=== PATIENT | female | born 1945 | race Caucasian/White ===

== ENCOUNTER 2017-01-23 19:01 | Observation (INO) ==
[2017-01-23] MEDS ORDERED: ASPIRIN PO STA (19:06)
[2017-01-23 19:22] LABS: MANUAL DIFF NEEDED? NO
[2017-01-23 19:37] LABS: BASO% 0.5 % (0.0-0.8); EOS# 0.06 X1000 (0.0-0.7); HEMATOCRIT 30.2 % (37.0-47.0); HEMOGLOBIN 10.6 g/dL (12.0-16.0); IMM GRAN# 0.06 X1000 (0.0-0.04); LYMPH# 1.45 X1000 (1.2-3.4); LYMPH% 23.4 % (20.5-51.1); MCH 30.5 PG (27-31); MCHC 35.1 g/dL (33-37); MONO# 0.54 X1000 (0.11-0.59); MONO% 8.7 % (1.7-9.3); MPV 9.8 FL (7.4-10.4); NEUT% 65.4 % (42.2-75.2); PLT 301 X1000 (130-400); RBC 3.47 XMIL (4.2-5.4)
--- NOTE | 2017-01-23 19:44 | Diag Imaging Result Doc PS360 ---
CHEST-2 VIEWS - 01/23/2017 INDICATION: CP TECHNIQUE: COMPARISON: 09/29/2014 FINDINGS: The lungs are normally expanded and clear. Heart size and mediastinal contours are normal. No pneumothorax or pleural effusion. IMPRESSION: Negative exam. Electronically signed by Porter Sanchez 01/23/2017 7:42 PM
[2017-01-23 19:46] LABS: INR 0.97; PROTIME 10.2 Seconds (9.2-11.7); PTT 25.2 Seconds (22.0-36.0)
[2017-01-23] MEDS ORDERED: ZOFRAN IV ONE (19:54)
[2017-01-23] MEDS ORDERED: MORPHINE IV ONE (19:54)
[2017-01-23] MEDS ORDERED: ATIVAN IV ONE ×2 (20:05→21:37)
[2017-01-23 20:12] LABS: ALBUMIN 4.7 g/dL (3.5-5.0); CALCIUM 9.4 mg/dL (8.8-10.2); POTASSIUM 4.4 mmol/L (3.5-5.1); TOTAL BILIRUBIN 0.42 mg/dL (0.20-1.00); TOTAL PROTEIN 7.2 g/dL (6.3-8.3)
--- NOTE | 2017-01-23 21:01 | PROVIDER DOCUMENTATION ---
This chart was entered by Marcial Gordon Scribe, acting as scribe for Reed Mata MD. HPI-Chest Pain - General Chief Complaint: Chest Pain Stated Complaint: CP Time Seen by Provider: 01/23/17 19:06 Source: patient, EMS Allergies/Adverse Reactions: Patient Allergies Allergy/AdvReac Type Severity Reaction Status Date / Time Iodinated Contrast Media - Allergy Unknown Verified 09/29/14 02:28 Oral and [Iodinated Contrast Media - IV Dye] JIMMY Inhibitors AdvReac SWELLING Verified 09/29/14 02:28 Home Medications: Home Medication List Medication Instructions Recorded Confirmed Last Taken Type Clonidine HCl 1 tab PO TID 01/08/14 09/29/14 09/28/14 17:00 History Diltiazem HCl [Cardizem Cd] 1 tab PO DAILY 01/08/14 09/29/14 09/28/14 08:00 History Diphenoxylate/Atropine [Lomotil] 1 tab PO PRN PRN 01/08/14 09/29/14 05/01/14 12: 30 History 1 tab Esomeprazole [Nexium] 1 tab PO DAILY 01/08/14 09/29/14 09/28/14 08:00 History Fluticasone 50 Mcg Nasal [place] 2 spray INH DAILY 01/08/14 09/29/14 05/01/14 12: 30 History [Flonase] 2 SPRAY Gemfibrozil 1 tab PO DAILY 01/08/14 09/29/14 09/28/14 08:00 History Hydralazine [Apresoline] 100 mg PO TID 01/08/14 09/29/14 09/28/14 17:00 History Levothyroxine [Synthroid] 1 tab PO DAILY 01/08/14 09/29/14 09/28/14 08:00 History Metformin [Glucophage] 1,000 mg PO BID 01/08/14 09/29/14 09/28/14 17:00 History Montelukast [Singulair] 1 tab PO DAILY 01/08/14 09/29/14 09/28/14 08:00 History Sertraline HCl [Zoloft] 1 tab PO DAILY 01/08/14 09/29/14 09/28/14 00:00 History Alprazolam [Xanax] 1 - 2 each PO PRN PRN 09/29/14 09/29/14 Unknown History Olmesartan/Hydrochlorothiazide 1 each PO DAILY 09/29/14 09/29/14 09/28/14 08:00 History [Benicar Hct 40-25 mg Tablet] Ondansetron [Zofran] 8 mg PO Q6H PRN PRN 09/29/14 09/29/14 09/28/14 00:00 History Sucralfate [Carafate] 1 gm PO Q6H #0 tablet 10/03/14 Unknown Rx - History of Present Illness-CP Nature of Presenting Problem: Pt is a 71 yowf who presents to ER via EMS with CC of CP and palpitations since this am. Pt reports chest pain that radiates to left mandibular and LUE. Pt reports that she took 4x81mg aspirin before EMS arrived, and was given 2xNitro and 4xMorphine by EMS. Pt also complains of nausea, fatigue, shortness of breath and dyspnea on deep inspiration. Pt reports that she was recently seen by Dr. Sherwood for an abnormal EKG, had anEcho on Tuesday, and states that she is scheduled to have a holtier monitor placed. Location: reports: central Chest Pain Radiation: reports: jaw (left mandibular), arms (LUE (shoulder)) Severity in ED: mild, moderate Onset/Duration: this morning Timing: still present, improving Associated Symptoms: reports: fatigue, nausea, shortness of breath, weakness. denies: abdominal pain, back pain, diaphoresis, dizziness, edema, fever/chills, headache, heartburn, rash, swelling/lump in chest, syncope, vomiting Nitro Today/Relief: 0.4 mg x 2, provided by EMS, mild relief Aspirin Treatment Today: 81 mg x 4, provided at home Prior Chest Pain/Cardiac Workup: reports: echocardiography Similar Symptoms Previously?: Yes Recently Seen Here or By Another Healthcare Provider: Yes Review of Systems - Adult - REVIEW OF SYSTEMS - ADULT Constitutional: reports: christa. denies: chills, fever, night sweats, weight gain, weight loss Eyes: reports: no symptoms reported Ears, Nose, Mouth & Throat: reports: mouth/dental pain (left mandibular pain). denies: ear discharge, ear pain, epistaxis, sinus problem, mouth swelling, throat pain, throat swelling Cardiovascular: reports: chest pain, palpitations. denies: edema, heart murmur , irregular heart rate, orthopnea, poor circulation, PND, syncope Respiratory: reports: dyspnea on exertion, shortness of breath. denies: chronic cough, cough, excessive sputum production, hemoptysis, pleurisy, wheezing Gastrointestinal: reports: nausea. denies: abdominal pain, hematemesis, constipation, diarrhea, difficulty swallowing, frequent heartburn, poor appetite , rectal bleeding, vomiting Genitourinary: reports: no symptoms reported Musculoskeletal: reports: joint pain (left shoulder). denies: bone pain, back pain, frequent leg cramps, joint swelling, muscle aches, muscle weakness, neck pain Integumentary: reports: no symptoms reported Neurological: reports: no symptoms reported Psychiatric: reports: no symptoms reported Endocrine: reports: no symptoms reported Hematologic/Lymphatic: reports: no symptoms reported Allergic/Immunologic: reports: no symptoms reported All Other Systems: Reviewed and Negative Past History - Adult - PAST MEDICAL HISTORY-ADULT Review of Records: reports: Nursing Assessment Review, Medications Reviewed Cardiovascular: reports: HTN, hyperlipidemia, murmur Gastrointestinal: reports: IBS, other (diverticulitis) Genitourinary: reports: kidney disease Psychiatric: reports: anxiety, depression Endocrine/Immune: reports: anemia, Diabetes, thyroid disorder Other Conditions: reports: other cancer (skin cancer) Additional History: anemia, skin cancer - PRIOR SURGERIES/PROCEDURES Surgical/Procedure History: reports: cholecystectomy, hysterectomy, other ( bladder, cyst removal, eye Sx) - IMMUNIZATION STATUS Childhood Immunizations: See Nurse Assessment Flu Vaccine: See Nurse Assessment Physical Exam-General - PHYSICAL EXAM-ADULT Initial Vital Signs Reviewed: Yes - CONSTITUTIONAL General Appearance: appears well, alert, mild distress - EYES Eyes: PERRL/EOMI, pink conjunctivae - NECK Neck: non-tender, full range of motion, supple. negative: C-spine tenderness, limited range of motion, lymphadenopathy - RESPIRATORY Respiratory: chest non-tender, lungs clear, normal breath sounds, no pleuratic chest pain, no respiratory distress, no accessory muscle use. negative: respiratory distress, decreased breath sounds, accessory muscle use, wheezing - CARDIOVASCULAR Cardiovascular: normal peripheral pulses, regular rate, rhythm, systolic murmur (Grade 1). negative: bradycardia, tachycardia, irregularly irregular - GASTROINTESTINAL (ABDOMEN) Abdominal Exam: normal bowel sounds, non tender, soft, no organomegaly, no pulsatile mass. negative: guarding, rebound, tenderness - MUSCULOSKELETAL Back Exam: no CVA tenderness, no vertebral tenderness. negative: CVA tenderness , vertebral tenderness - PSYCHIATRIC Psych/Mental Status: normal mood/affect, normal thought content, normal thought process, oriented x 3 Progress - PLAN OF CARE/RESULTS Progress/Plan/Lab Results: Vital Signs - 8 hr 01/23/17 19:15 Pulse Rate 74 Respiratory Rate 22 Blood Pressure 159/79 O2 Sat by Pulse Oximetry 100 Laboratory Results - last 24 hr 01/23/17 01/23/17 01/23/17 19:00 19:00 19:00 WBC 6.20 RBC 3.47 L Hgb 10.6 L Hct 30.2 L MCV 87.0 MCH 30.5 MCHC 35.1 RDW Std Deviation 13.2 Plt Count 301 MPV 9.8 Immature Gran % (Auto) 1.0 H Neut % (Auto) 65.4 Lymph % (Auto) 23.4 Island % (Auto) 8.7 Eos % (Auto) 1.0 Baso % (Auto) 0.5 Immature Gran # (Auto) 0.06 H Neut # (Auto) 4.06 Lymph # (Auto) 1.45 Island # (Auto) 0.54 Eos # (Auto) 0.06 Baso # (Auto) 0.03 PT INR PTT (Actin FS) D-Dimer 0.38 Sodium 136 Potassium 4.4 Chloride 95 L Carbon Dioxide 19 L Anion Gap 22 BUN 26 H Creatinine 2.2 H Estimated GFR/1.73 m2 22 BUN/Creatinine Ratio 12 Glucose 173 H Calculated Osmolality 281 Calcium 9.4 Magnesium Total Bilirubin 0.42 AST 20 ALT 10 Alkaline Phosphatase 150 H Creatine Kinase 90 Troponin T Obr-N-Fqtdxglvspb Pept Total Protein 7.2 Albumin 4.7 Globulin 2.5 Albumin/Globulin Ratio 1.9 01/23/17 01/23/17 01/23/17 19:00 19:00 19:00 WBC RBC Hgb Hct MCV MCH MCHC RDW Std Deviation Plt Count MPV Immature Gran % (Auto) Neut % (Auto) Lymph % (Auto) Island % (Auto) Eos % (Auto) Baso % (Auto) Immature Gran # (Auto) Neut # (Auto) Lymph # (Auto) Island # (Auto) Eos # (Auto) Baso # (Auto) PT 10.2 INR 0.97 PTT (Actin FS) 25.2 D-Dimer Sodium Potassium Chloride Carbon Dioxide Anion Gap BUN Creatinine Estimated GFR/1.73 m2 BUN/Creatinine Ratio Glucose Calculated Osmolality Calcium Magnesium Total Bilirubin AST ALT Alkaline Phosphatase Creatine Kinase Troponin T < 0.010 Jhu-T-Xqvqmtzzidd Pept 611 H Total Protein Albumin Globulin Albumin/Globulin Ratio 01/23/17 19:00 WBC RBC Hgb Hct MCV MCH MCHC RDW Std Deviation Plt Count MPV Immature Gran % (Auto) Neut % (Auto) Lymph % (Auto) Island % (Auto) Eos % (Auto) Baso % (Auto) Immature Gran # (Auto) Neut # (Auto) Lymph # (Auto) Island # (Auto) Eos # (Auto) Baso # (Auto) PT INR PTT (Actin FS) D-Dimer Sodium Potassium Chloride Carbon Dioxide Anion Gap BUN Creatinine Estimated GFR/1.73 m2 BUN/Creatinine Ratio Glucose Calculated Osmolality Calcium Magnesium 1.9 Total Bilirubin AST ALT Alkaline Phosphatase Creatine Kinase Troponin T Rjq-A-Bdrzwtvzshv Pept Total Protein Albumin Globulin Albumin/Globulin Ratio Orders Category Date Time Status Cardiac Monitoring DIRECTED Care 01/23/17 19:06 Active Saline Loc NOW Care 01/23/17 19:06 Active CHEST-2 VIEWS [RAD] Stat Exams 01/23/17 19:06 Completed CBC WITH ELECTRONIC DIFF [HEME] Stat Lab 01/23/17 19:00 Completed CK PROFILE [SP CHEM] Stat Lab 01/23/17 19:00 Completed COMPREHENSIVE METABOLIC PANEL [CHEM] Stat Lab 01/23/17 19:00 Completed D-DIMER [CHEM] Stat Lab 01/23/17 19:00 Completed MAGNESIUM [CHEM] Stat Lab 01/23/17 19:00 Completed PRO B-NATRIURETIC PEPTIDE Stat Lab 01/23/17 19:00 Completed PROTIME WITH INR [COAG] Stat Lab 01/23/17 19:00 Completed PTT [COAG] Stat Lab 01/23/17 19:00 Completed TROPONIN T Stat Lab 01/23/17 19:00 Completed Aspirin Med 01/23/17 19:06 Discontinued 325 mg PO STAT STA Lorazepam [Ativan] Med 01/23/17 20:05 Discontinued 0.5 mg IV NOW ONE Morphine Med 01/23/17 19:54 Discontinued 4 mg IV NOW ONE Ondansetron [Zofran] Med 01/23/17 19:54 Discontinued 4 mg IV NOW ONE EKG [EKG] Stat Ther 01/23/17 19:06 Ordered Result Diagrams: 01/23/17 19:00 01/23/17 19:00 - REASSESSMENT Reassessment #1 Time Reassessed: 20:59 (pt has been painfree during her entire ED stay and is adamant about not staying over night for further testing so will arrange out pt follow up) Status: improving Departure - Departure Date of Disposition Decision: 01/23/17 Time of Disposition Decision: 21:00 DIAGNOSIS: Chest pain Qualifiers: Chest pain type: unspecified Qualified Code(s): R07.9 - Chest pain, unspecified Disposition: HOME 01 Certified Medical Emergency: Emergent Condition: Good Additional Freetext Instructions: call Dr Michael Rebollar, [facility] ED Follow Up Instructions: You have been treated by a care provider in the Emergency Department. These instructions are being provided to you so you can have an understanding of how to care for yourself upon discharge. Upon discharge from the Emergency Department, you are responsible for making arrangements for follow-up care by a physician of your choice. Take all prescribed medications as directed. Return to the Emergency Department immediately for any new or worsening symptoms. You may call the Physician Referral phone number at [phone] to obtain a list of Physicians who are taking new patients.tor, to arrange further testing Referrals and Follow-Ups: Michael Rebollar MD [ACTIVE STAFF PHYSICIAN] - - Critical Care Note This patient required my direct & personal management of CC.: No This chart was documented by the indicated scribe, (Marcial Gordon Scribe) and accurately reflects the services I performed and decisions made by me, Reed Herrera MD, as attested by the provider's signature.
--- NOTE | 2017-01-23 21:02 | ED EKG INTERP ---
This chart was entered by Marcial Gordon Scribe, acting as scribe for Reed Mata MD. EKG Interpretation - EKG Time of EKG reading by physician:: 19:27 EKG Read and Signed by:: Reed Mata EKG Interpretation (*Must complete 3 of following elements*): Abnormal ( Nonspecific ST abnormality) Rate: 67 Rhythm: Sinus rhythm with 1st degree AV block This chart was documented by the indicated scribe, (Marcial Gordon Scribe) and accurately reflects the services I performed and decisions made by me, Reed Herrera MD, as attested by the provider's signature.
--- NOTE | 2017-01-23 22:27 | ED EKG INTERP ---
This chart was entered by Marcial Gordon Scribe, acting as scribe for Reed Mata MD. EKG Interpretation - EKG Time of EKG reading by physician:: 22:02 EKG Read and Signed by:: Reed Mata EKG Interpretation (*Must complete 3 of following elements*): Normal Rate: 80 Rhythm: Sinus rhythm with 1st degree AV block This chart was documented by the indicated scribe, (Marcial Gordon Scribe) and accurately reflects the services I performed and decisions made by me, Reed Herrera MD, as attested by the provider's signature.
[2017-01-24] MEDS ORDERED: TYLENOL PO PRN (00:23)
[2017-01-24] MEDS ORDERED: NS 1,000 ML IV ONE (00:23)
[2017-01-24] MEDS ORDERED: MORPHINE IV PRN (00:23)
[2017-01-24] MEDS ORDERED: XANAX PO PRN (00:30)
[2017-01-24] MEDS ORDERED: LOMOTIL PO PRN (00:30)
[2017-01-24] MEDS ORDERED: APRESOLINE IV PRN (02:53)
--- NOTE | 2017-01-24 03:38 | HISTORY AND PHYSICAL ---
CHIEF COMPLAINT: Chest pain. HISTORY OF PRESENT ILLNESS: This is a 71-year-old female with a history of hypertension and diabetes who presents with chest pain, midsternal, back, and radiating to her left ear, left shoulder, neck, and left arm. Pain was graded as of 8/10. She is followed by Dr. Hernández. Her last stress test was in 2013. Apparently, she had a significant reaction at that time. She had nausea and fatigue. Apparently, she has been followed by Dr. Hernández intermittently and it is actually due for an echocardiogram this week. Pain is different than her usual level of pain. It started while she was at [employer]. She did have nausea, weakness, shortness of breath. No diaphoresis. The pain has improved with some nitroglycerin. Patient placed in observation for chest pain. PAST MEDICAL HISTORY: 1. Skin cancer. 2. Diabetes. 3. Hypertension. 4. Chronic renal failure stage III. 5. Anxiety, depression. 6. GERD. 7. Diverticulosis. 8. Hypothyroidism. PAST SURGICAL HISTORY: 1. Cholecystectomy. 2. Hysterectomy. 3. Bladder sling surgery. 4. Cataract surgery. 5. Cyst removal. 6. Skin cancer. SOCIAL HISTORY: No smoking. No alcohol. No drugs. Works at the [employer] in the [place]. FAMILY HISTORY: Mother had a TIA. Father with renal cancer. REVIEW OF SYSTEMS: Ten point review of systems was reviewed and otherwise negative. PHYSICAL EXAMINATION: VITAL SIGNS: Blood pressure 194/75, heart rate 67, respiratory rate 17. GENERAL: A well-developed female, in no acute distress. HEAD: Normocephalic, atraumatic. EYES: Pupils equal, round, reactive to light. Extraocular movements were intact. EARS/NOSE/THROAT: She had moist mucous membranes. NECK: Supple. CARDIOVASCULAR: Regular rate and rhythm. No murmurs, gallops, or rubs. PULMONARY: Bilateral breath sounds clear to auscultation. GI: Soft, nontender, nondistended. Bowel sounds were positive. EXTREMITIES: No clubbing or cyanosis. LYMPHATICS: No peripheral edema. NEUROLOGICAL: Examination was nonfocal. LABORATORY DATA: White count normal, hemoglobin and hematocrit 10 and 30. Creatinine 2.2. PROBLEM LIST: 1. Chest pain, atypical but she does have several risk factors. We will continue aspirin and monitor on telemetry. Obtain echocardiogram. We will attempt to pursue a stress test tomorrow. She has not tolerated these in the past but I am not sure if she is not being a bit histrionic about that, but we will follow. At the very least, I would do a resting MIBI study. 2. Hypertension, does not appear well controlled. I am not sure if she may have missed some of her doses of medications. She is on hydralazine, Cardizem, clonidine, and has significant hypertension. May have to entertain some secondary hypertension workup. I guess there has been concern as she has got some renal insufficiency. 3. Acute kidney injury. We will get some gentle hydration and follow. 4. I am going to titrate up on her hydralazine 75 three times a day and we will follow clinically. cc: MD Matt Bradley MD Kathleen Dupper, MD
[2017-01-24] MEDS: ZOFRAN IV PRN ×2 (03:39→10:16)
[2017-01-24 04:38] LABS: UR CREAT RANDOM 27.6 mg/dL (11-20)
--- NOTE | 2017-01-24 05:28 | EKG Report ---
Test Performed on : 01/23/2017 10:02:33 PM Test Reason : cp Blood Pressure : / mmHG Vent. Rate : 080 BPM Atrial Rate : 080 BPM P-R Int : 234 ms QRS Dur : 084 ms QT Int : 404 ms P-R-T Axes : 077 021 002 degrees QTc Int : 465 ms Sinus rhythm. with 1st degree AV block. Otherwise normal ECG When compared with ECG of 23-JAN-2017 19:27, (Unconfirmed) No significant change was found Unconfirmed Result
[2017-01-24] MEDS: SYNTHROID PO SCH (06:06)
[2017-01-24] MEDS: HUMULIN R SUBQ SCH ×4 (06:06→21:05)
[2017-01-24] MEDS: PRILOSEC PO SCH (06:06)
[2017-01-24 08:28] LABS: POTASSIUM 3.7 mmol/L (3.5-5.1)
[2017-01-24] MEDS ORDERED: APRESOLINE PO SCH (09:00)
[2017-01-24] MEDS ORDERED: NEXIUM PO SCH (09:00)
[2017-01-24] MEDS ORDERED: LEXISCAN ONE (09:03)
[2017-01-24 09:45] LABS: HEMOGLOBIN A1C 6.7 % (4.8-6.0)
[2017-01-24] MEDS ORDERED: AMINOPHYLLINE ONE (10:01)
[2017-01-24] MEDS: APRESOLINE PO SCH ×3 (11:10→18:49)
[2017-01-24] MEDS: CATAPRES PO SCH ×3 (11:10→18:49)
[2017-01-24] MEDS: SINGULAIR PO SCH (11:10)
[2017-01-24] MEDS: LOPID PO SCH (11:10)
[2017-01-24] MEDS: ZOLOFT PO SCH (11:10)
[2017-01-24] MEDS: CARDIZEM CD PO SCH (11:10)
[2017-01-24] MEDS: CULTURELLE PO SCH (12:37)
[2017-01-24] MEDS: NS 1,000 ML IV SCH (12:37)
--- NOTE | 2017-01-24 14:11 | Diag Imaging Result Document ---
PROCEDURE NAME: MYOCARDIAL PERF SCAN, STR/REST - 01/24/2017 LEXISCAN CARDIOLITE STRESS TEST: Lexiscan was infused per standard protocol. There was chest discomfort following Lexiscan infusion requiring 125 mg of aminophylline given intravenously. Baseline electrocardiogram revealed normal sinus rhythm. With Lexiscan infusion there was [address] depression in the inferior and inferolateral leads. Following Lexiscan infusion Cardiolite was injected. 14.5 mCi of Cardiolite was injected for the rest phase, 31.9 mCi of Cardiolite was injected for the stress phase. Gated SPECT images were obtained in standard views. Images revealed normal myocardial perfusion. Left ventricular ejection fraction by gated SPECT was 80%. CONCLUSIONS: 1. The patient has chest discomfort requiring aminophylline infusion. 2. Stress Lexiscan electrocardiogram was positive for ischemia. 3. Normal myocardial perfusion. 4. Left ventricular ejection fraction by gated SPECT was 80%. cc: MD Israel Ledbetter MD
--- NOTE | 2017-01-24 14:50 | PROGRESS NOTE ---
DATE: 01/24/2017 SUBJECTIVE: The patient is resting comfortably in bed. She just returned from a stress test. She does complain of some mild nausea, but otherwise feels okay. She states that she has been having diarrhea for several days. She just completed a course of Augmentin for an ear infection. OBJECTIVE: Vital Signs: Temperature 98.2 degrees, blood pressure 188/74, heart rate 69, respirations 20, O2 saturations 100% on room air. General: This is an elderly female, lying in bed, in no acute distress. Head: Normocephalic, atraumatic. Heart: S1, S2. Normal. Regular rate and rhythm. Lungs: Clear to auscultation bilaterally. No wheezes, no rales. No rhonchi. Abdomen: Positive bowel sounds. Soft, nontender, nondistended. Extremities: No edema. No cyanosis. No calf tenderness. Neurologic: The patient is alert and oriented x3. LABORATORY: Sodium 137, potassium 3.7, chloride 100, CO2 22, BUN 24, creatinine 1.8, glucose 185. Hemoglobin A1c 6.7, calcium 9, troponin negative x3. ASSESSMENT AND PLAN: 1. Chest pain. We will await the results of the stress test and the Cardiology recommendations. 2. Diarrhea. We will check the patient's stool for C. difficile due to the patient's recent exposure to antibiotics. 3. Acute kidney injury on chronic kidney disease. Improved. Continue on gentle IV fluid hydration. 4. Hypertension. Continue on the current antihypertensives. 5. Irritable bowel syndrome. Aware. 6. Deep vein thrombosis prophylaxis. We will start the patient on Lovenox. 7. Hypothyroidism. Continue on Synthroid. cc: Triny Good MD
[2017-01-24 14:51] LABS: URINE CULTURE NEEDED? NO; URINE MICRO REVIEW NEEDED? NO; URINE SOURCE CLEAN CATCH
[2017-01-24 14:57] LABS: BILIRUBIN URINE NEGATIVE (NEGATIVE); BLOOD URINE NEGATIVE (NEGATIVE); COLOR STRAW; GLUCOSE URINE 500 mg/dL (NEGATIVE); LEUKOCYTES URINE NEGATIVE (NEGATIVE); NITRITE URINE NEGATIVE (NEGATIVE); PROTEIN URINE NEGATIVE (NEGATIVE); SP GRAVITY URINE 1.005; TURBIDITY URINE CLEAR (CLEAR); UROBILINOGEN URINE NORMAL (NORMAL)
[2017-01-24 14:58] LABS: UR EPITHELIAL CELLS <10 /HPF (<10); URINE BACTERIA NEGATIVE /HPF; URINE RBC <10 /HPF (<10); URINE WBC <10 /HPF (<10)
[2017-01-24 15:06] LABS: UR PROT RANDOM 5.6 mg/dL
[2017-01-24] MEDS: LOVENOX SUBQ SCH (15:11)
--- NOTE | 2017-01-24 15:30 | ECHO REPORT ---
ORDER DATE: 01/24/2017 ECHOCARDIOGRAPHIC MEASUREMENTS: 1. Interventricular septum 0.9. Left ventricular posterior wall 0.9. Diastolic diameter 4.6. Left atrium 4. Aorta 2.8. Normal left ventricular cavity size. Estimated ejection fraction of 60%. Aortic valve leaflets are trileaflet. Mitral valve was normal. Tricuspid valve was normal. Pulmonic valve was normal. 2. There is no aortic stenosis. There is trivial aortic regurgitation. There is mild mitral regurgitation. Mild tricuspid regurgitation. Peak velocity across the tricuspid valve was 3 m/sec. 3. Prominent eustachian valve was noted, a normal variant. 4. There is mild mitral regurgitation. 5. There is no pericardial effusion. cc: MD Israel Ledbetter MD
--- NOTE | 2017-01-24 17:43 | CONSULTATION ---
DATE OF CONSULTATION: 01/24/2017 IMPRESSION: 1. Chest pain with mixed features. Overall clinical presentation atypical given duration of chest discomfort and normal serial cardiac enzymes. 2. Chronic kidney disease stage 3. 3. Diabetes mellitus type 2. 4. Hypertension. 5. Anxiety/depression. RECOMMENDATIONS: 1. Agree with plans for Lexiscan sestamibi study and echocardiography. 2. Further recommendations to follow depending on these results. HISTORY: This 71-year-old, white female with past history of stage 3 chronic kidney disease, type 2 diabetes mellitus, hypertension, Anxiety/depression and gastroesophageal reflux was admitted for further evaluation of chest pain. She reports left-sided squeezing discomfort which extended to her back and left side of her neck as well as into her left arm. Discomfort began at rest and lasted several hours. She denies any other associated symptoms. She became pain-free after several hours. She is admitted for further evaluation and is presently without chest discomfort. She has had some chest symptoms in the past, but is not known to have any coronary disease. She last had stress myocardial perfusion study in 2013 and this was negative. PAST MEDICAL HISTORY: 1. Type 2 diabetes mellitus. 2. Hypertension. 3. Chronic kidney disease stage 3. 4. Anxiety/depression. 5. Gastroesophageal reflux with history of previous esophageal dilatation for esophageal stricture. 6. Diverticular disease. 7. Hypothyroidism. 8. History of skin cancer. PAST SURGICAL HISTORY: Cholecystectomy, hysterectomy, bladder sling surgery, cataract surgery, cyst removal, and surgery for skin cancer. MEDICATIONS PRIOR TO ADMISSION: As listed. ALLERGIES: She is intolerant of angiotensin converting enzyme inhibitors due to angioedema. SOCIAL HISTORY: She has never smoked. She does not use alcohol. FAMILY HISTORY: Negative for premature coronary disease. REVIEW OF SYSTEMS: Pulmonary: Negative. Gastrointestinal: Noteworthy for gastroesophageal reflux, but otherwise negative. Remainder of review of systems negative/noncontributory with 14 total systems reviewed. PHYSICAL EXAMINATION: General: This is a somewhat anxious-appearing older white female, in no distress. Vital signs: Blood pressure 188/74, heart rate 69 and regular. HEENT: Extraocular muscles appear intact. Mucous membranes moist. Neck: Supple without jugular venous distention. There are no carotid bruits. Chest: Clear to auscultation. Cardiac: Reveals a regular rate and rhythm without appreciable murmur or gallop. Abdomen: Soft, nontender. Bowel sounds are normal. Extremities: Without edema. Neurologic: Reveals her to be alert, fully oriented. Speech is fluent. She moves all 4 extremities equally well. Skin: Warm and dry. Psychiatric: Reveals her to be somewhat anxious. PERTINENT DATA: Twelve lead EKG demonstrates sinus rhythm, first-degree AV block. LABORATORY DATA: Includes an initial troponin less than 0.01. Followup troponin less than 0.01. BUN 26. Creatinine 2.2. cc: Robles Zacarias MD
[2017-01-25] MEDS: NS 1,000 ML IV SCH (00:57)
[2017-01-25] MEDS: HUMULIN R SUBQ SCH ×3 (06:20→16:50)
[2017-01-25] MEDS: SYNTHROID PO SCH (06:20)
[2017-01-25] MEDS: PRILOSEC PO SCH (06:20)
[2017-01-25 06:40] LABS: HEMATOCRIT 26.8 % (37.0-47.0); HEMOGLOBIN 9.2 g/dL (12.0-16.0); MCH 30.7 PG (27-31); MCHC 34.3 g/dL (33-37); MCV 89.3 FL (81-99); MPV 9.2 FL (7.4-10.4)
[2017-01-25 06:44] LABS: CALCIUM 8.4 mg/dL (8.8-10.2); POTASSIUM 3.9 mmol/L (3.5-5.1)
[2017-01-25] MEDS: SINGULAIR PO SCH (09:32)
[2017-01-25] MEDS: CULTURELLE PO SCH (09:32)
[2017-01-25] MEDS: CATAPRES PO SCH ×2 (09:32→13:20)
[2017-01-25] MEDS: APRESOLINE PO SCH ×2 (09:32→13:20)
[2017-01-25] MEDS: CARDIZEM CD PO SCH (09:32)
[2017-01-25] MEDS: ZOLOFT PO SCH (09:32)
[2017-01-25] MEDS: LOPID PO SCH (09:33)
[2017-01-25] MEDS: LOVENOX SUBQ SCH (13:37)
[2017-01-25 15:42] VITALS: BP 129/55
--- NOTE | 2017-01-30 07:35 | DISCHARGE SUMMARY ---
ADMISSION DATE: 01/24/2017 DISCHARGE DATE: 01/25/2017 FINAL DISCHARGE DIAGNOSES: 1. Chest pain. 2. Diarrhea. 3. Acute kidney injury on chronic kidney disease. 4. Hypertension. 5. Irritable bowel syndrome. 6. Hypothyroidism. CONSULTATIONS REQUESTED DURING THIS HOSPITAL STAY: Cardiology consultation. IMAGING PERFORMED DURING THIS HOSPITAL STAY: 1. Myocardial perfusion scan performed on 01/24/2017 that was noted to be normal. 2. Two dimensional echocardiogram which revealed an ejection fraction of 60%. HOSPITAL COURSE: Ms. Razo is a 71-year-old female who presented to the ER with chest pain. The patient's initial cardiac enzymes were noted to be negative. However, the patient was noted to be in acute on chronic renal failure. The patient was admitted to the hospitalist service and started on gentle IV fluid hydration. The patient's metformin was also held due to the renal insufficiency. With IV fluid hydration, the patient's BUN and creatinine both improved. The patient also had a myocardial perfusion scan that was noted to be normal. The patient was also seen by the windows deployment technician. The patient continued to improve clinically and was cleared for discharge home on 01/25/2017. DISCHARGE MEDICATIONS: 1. Flonase 2 sprays inhaled daily. 2. Zoloft 1 tablet oral daily. 3. Metformin 1000 mg p.o. twice a day. 4. Singulair 10 mg p.o. daily. 5. Synthroid 88 mcg oral daily. 6. Gemfibrozil 600 mg p.o. daily. 7. Hydralazine 50 mg p.o. 3 times a day. 8. Nexium 40 mg twice a day. 9. Clonidine 0.2 mg p.o. 3 times a day. 10. Cardizem CD 1 tablet oral daily. 11. Lomotil p.r.n. 12. Xanax 0.5 mg p.o. twice a day p.r.n. for anxiety. 13. Valsartan/hydrochlorothiazide 1 tablet oral daily. 14. Zofran 8 mg p.o. every 6 hours p.r.n. for nausea. DISCHARGE DIET: Low-sodium, 1800, ADA diet. ACTIVITY: As tolerated. FOLLOWUP INSTRUCTIONS: The patient has been advised to follow up with Dr. Monse Deras in 1-2 weeks. cc: Triny Good MD
== END 2017-01-25 18:40 | disposition home or self-care (01) ==
LOC: ED 19:01 → 3N 19:01 → SUATTDRO 01-24 00:21
PROVIDERS: ATTEND Internal Medicine